=== PATIENT | male | born 1940 | race Caucasian/White ===

== ENCOUNTER 2016-11-11 17:36 | Inpatient (IN) | payer MEDICARE, OTHER ==
[~2016-11-11 17:36] MED LIST: ASPIRIN81 MG; AVODART0.5 MG; AZO BLADDER CO300 MG PO; BACTRIM DS TABL1 TAB; BACTRIM DS TABL1 TAB PO; CHOLESTEROL MA600 MG PO; COUMADIN10 M1 PO; COUMADIN2.5 MG; COUMADIN5 M1 PO; COUMADIN5 M2 PO; COUMADIN5 MG; COUMADIN5 MG PO; COUMADIN6 M1 PO; COUMADIN7.5 MG PO; COZAAR50 M1 PO; CPAP; FINASTERIDE5 M2 PO; FISH OIL 1,0001 CAP PO; FISH OIL 11000 MG/CA PO; FUROSEMIDE40 MG PO; GABAPENTIN300 M1 PO; K-DUR20 ME1 PO; LASIX20 M1 PO; LASIX40 MG PO; LIPITOR10 MG; LOSARTAN POTASS50 MG PO; LOVENOX100 MG/1 M SC; METFORMIN HCL500 M2 PO; MULTIVITAMIN1 TAB PO; MULTIVITAMINS1 EAC6 PO; NEURONTIN100 M1 PO; NIASPAN500 MG; NORCO 5/325 TAB1 TAB PO; NORVASC5 M2 PO; NORVASC5 MG; NORVASC5 MG PO; OMEGA 3 FISH1 CAP.EC PO; OMEGA 31 CAP; PLAVIX75 MG; POTASSIUM CHLO20 ME3 PO; PYRIDIUM200 MG PO; RED YEAST RICE600 MG; RED YEAST RICE600 MG PO; ROPINIROLE HCL1 M1 PO; ROPINIROLE HCL1 MG PO; ROPINIROLE HCL4 M2 PO; SANCTURA20 MG PO; SERTRALINE HCL100 M1 PO; SERTRALINE HCL100 M2 PO; SIMVASTATIN10 MG PO; TOPROL XL50 MG; TRIAMTERENE/HCT1 TAB; TROSPIUM CHLORI20 MG PO; UROXATRAL10 MG; VENLAFAXINE HC150 M3 PO; VITAMIN C1000 M1 PO; VITAMIN C1000 MG PO; XIFAXAN550 M1 PO; ZOCOR10 M1 PO; ZOCOR10 MG PO; [UNRECOGNIZED DRUG - OTHER] PO
[2016-11-11] MEDS ORDERED: FISH OIL 11000 MG/CA PO (18:11)
[2016-11-11 18:22] LABS: BASO % 0.4 % (0-2); EOS % 0.5 % (0-7); HCT-HEMATOCRIT 38.9 % (36.0-53.5); HGB-HEMOGLOBIN 13.4 gm/dl (13.5-17.0); IMMATURE GRANULOCYTES ABSOLUTE 0.01 tho/cmm (0-0.03); IMMATURE GRANULOCYTES PERCENT 0.2 % (0-0.3); LYMPH % 14.5 % (20-45); LYMPH ABSOLUTE COUNT 0.8 tho/cmm (0.8-4.5); MCH (MEAN CORPUSCULAR HGB) 34.3 pg (28.0-32.0); MCHC MEAN CORPUSCULAR HGB CONC 34.4 % (32.0-36.0); MCV (MEAN CELL VOLUME) 99.5 fl (82.0-96.0); MEAN PLATELET VOLUME 11.2 cmc (9.4-12.4); MONO % 10.3 % (0-12); MONOCYTE ABSOLUTE COUNT 0.6 tho/cmm (0.0-1.2); NEUTROPHIL ABSOLUTE COUNT 4.2 tho/cmm (1.6-8.0); NEUTROPHIL-AUTOMATED 4.2 tho/cmm (1.6-8.0); NEUTROPHILS % 74.1 % (40-80); PLATELET COUNT 207 tho/cmm (150-450); RED BLOOD COUNT 3.91 mil/cmm (4.40-5.70); RED CELL DISTRIBUTION WIDTH 14.4 % (12.4-16.4); WHITE BLOOD COUNT 5.7 tho/cmm (4.0-10.0)
[2016-11-11 18:52] LABS: URINE APPEARANCE CLEAR; URINE BILIRUBIN NEGATIVE (NEG); URINE BLOOD SMALL (NEG); URINE COLOR YELLOW; URINE GLUCOSE (UA) NEGATIVE (NEG); URINE KETONE NEGATIVE (NEG); URINE LEUKOCYTE ESTERASE NEGATIVE (NEG); URINE NITRITE NEGATIVE (NEG); URINE PROTEIN SMALL (NEG); URINE SPECIFIC GRAVITY 1.005 (1.003-1.030)
[2016-11-11 19:06] LABS: URINE EPITHELIAL CELLS 0 /[HPF] (0-10); URINE WBC 0 /[HPF] (0-5)
[2016-11-11 19:42] LABS: ALB/GLOB RATIO 0.7 (0.8-2.0); ALBUMIN 3.3 g/dl (3.5-5.0); ALKALINE PHOSPHATASE 218 U/L (33-138); ALT/SGPT 72 U/L (12-78); ANION GAP 12 mmol/L (0-20); AST/SGOT 92 U/L (10-40); BILIRUBIN,TOTAL 3.2 mg/dl (0.0-1.5); BLOOD UREA NITROGEN 21 mg/dl (6-24); CALCIUM 8.2 mg/dl (8.5-10.5); CARBON DIOXIDE-VENOUS 28 mmol/L (22-32); CHLORIDE 101 mmol/l (96-110); GLUCOSE 106 mg/dL (70-110); POTASSIUM 4.1 mmol/L (3.7-5.1); SODIUM 137 mmol/L (135-145); eGFR VALUE FOR BLACK 75 mL/Min
[2016-11-11 22:56] LABS: INR 1.6 INR (0.9-1.1); PROTHROMBIN TIME 18.7 SECONDS (9.0-13.6)
[2016-11-11 23:10] LABS: BILIRUBIN,DIRECT 0.7 mg/dl (0.0-0.3); BILIRUBIN,INDIRECT 2.4 mg/dL (0.0-1.0); BILIRUBIN,TOTAL 3.1 mg/dl (0.0-1.5)
[2016-11-11 23:13] LABS: TSH-THYROID STIMULATING HORM. 2.23 uIU/ml (0.40-3.80)
[2016-11-12 01:11] LABS: INR 1.5 INR (0.9-1.1); PROTHROMBIN TIME 18.2 SECONDS (9.0-13.6)
[2016-11-12 03:45] LABS: BASO % 0.3 % (0-2); HCT-HEMATOCRIT 34.7 % (36.0-53.5); HGB-HEMOGLOBIN 11.6 gm/dl (13.5-17.0); IMMATURE GRANULOCYTES ABSOLUTE 0.02 tho/cmm (0-0.03); IMMATURE GRANULOCYTES PERCENT 0.3 % (0-0.3); LYMPH ABSOLUTE COUNT 1.1 tho/cmm (0.8-4.5); MCH (MEAN CORPUSCULAR HGB) 33.4 pg (28.0-32.0); MCHC MEAN CORPUSCULAR HGB CONC 33.4 % (32.0-36.0); MEAN PLATELET VOLUME 10.8 cmc (9.4-12.4); MONO % 9.6 % (0-12); MONOCYTE ABSOLUTE COUNT 0.7 tho/cmm (0.0-1.2); NEUTROPHIL ABSOLUTE COUNT 5.8 tho/cmm (1.6-8.0); NEUTROPHIL-AUTOMATED 5.8 tho/cmm (1.6-8.0); NEUTROPHILS % 75.8 % (40-80); PLATELET COUNT 143 tho/cmm (150-450); RED BLOOD COUNT 3.47 mil/cmm (4.40-5.70); RED CELL DISTRIBUTION WIDTH 14.4 % (12.4-16.4); WHITE BLOOD COUNT 7.6 tho/cmm (4.0-10.0)
[2016-11-12 04:10] LABS: ALB/GLOB RATIO 0.7 (0.8-2.0); ALBUMIN 2.9 g/dl (3.5-5.0); ALKALINE PHOSPHATASE 183 U/L (33-138); ALT/SGPT 64 U/L (12-78); ANION GAP 15 mmol/L (0-20); AST/SGOT 91 U/L (10-40); BILIRUBIN,DIRECT 0.9 mg/dl (0.0-0.3); BILIRUBIN,INDIRECT 2.6 mg/dL (0.0-1.0); BILIRUBIN,TOTAL 3.5 mg/dl (0.0-1.5); BLOOD UREA NITROGEN 24 mg/dl (6-24); CALCIUM 7.7 mg/dl (8.5-10.5); CARBON DIOXIDE-VENOUS 22 mmol/L (22-32); CHLORIDE 104 mmol/l (96-110); CREATININE 1.08 mg/dl (0.60-1.30); GLUCOSE 104 mg/dL (70-110); MAGNESIUM 1.7 mg/dl (1.3-2.6); POTASSIUM 3.8 mmol/L (3.7-5.1); SODIUM 137 mmol/L (135-145); eGFR VALUE FOR BLACK 77 mL/Min
[2016-11-13 03:51] LABS: INR 1.3 INR (0.9-1.1); PROTHROMBIN TIME 15.5 SECONDS (9.0-13.6)
[2016-11-13 04:05] LABS: ANION GAP 13 mmol/L (0-20); BLOOD UREA NITROGEN 22 mg/dl (6-24); CALCIUM 7.9 mg/dl (8.5-10.5); CARBON DIOXIDE-VENOUS 24 mmol/L (22-32); CHLORIDE 105 mmol/l (96-110); GLUCOSE 147 mg/dL (70-110); POTASSIUM 3.4 mmol/L (3.7-5.1); SODIUM 139 mmol/L (135-145); eGFR VALUE FOR BLACK 84 mL/Min
[2016-11-13 04:06] LABS: BASO % 0.4 % (0-2); EOSINOPHIL ABSOLUTE COUNT 0.1 tho/cmm (0.0-0.7); HCT-HEMATOCRIT 32.6 % (36.0-53.5); HGB-HEMOGLOBIN 10.7 gm/dl (13.5-17.0); IMMATURE GRANULOCYTES ABSOLUTE 0.02 tho/cmm (0-0.03); IMMATURE GRANULOCYTES PERCENT 0.3 % (0-0.3); LYMPH % 9.6 % (20-45); LYMPH ABSOLUTE COUNT 0.7 tho/cmm (0.8-4.5); MCH (MEAN CORPUSCULAR HGB) 32.7 pg (28.0-32.0); MCHC MEAN CORPUSCULAR HGB CONC 32.8 % (32.0-36.0); MCV (MEAN CELL VOLUME) 99.7 fl (82.0-96.0); MEAN PLATELET VOLUME 10.8 cmc (9.4-12.4); MONO % 9.8 % (0-12); MONOCYTE ABSOLUTE COUNT 0.7 tho/cmm (0.0-1.2); NEUTROPHIL ABSOLUTE COUNT 5.6 tho/cmm (1.6-8.0); NEUTROPHIL-AUTOMATED 5.6 tho/cmm (1.6-8.0); NEUTROPHILS % 78.9 % (40-80); PLATELET COUNT 137 tho/cmm (150-450); RED BLOOD COUNT 3.27 mil/cmm (4.40-5.70); RED CELL DISTRIBUTION WIDTH 14.6 % (12.4-16.4); WHITE BLOOD COUNT 7.1 tho/cmm (4.0-10.0)
[2016-11-14 06:05] LABS: INR 1.2 INR (0.9-1.1); PROTHROMBIN TIME 14.6 SECONDS (9.0-13.6)
[2016-11-14 06:12] LABS: BASO % 0.2 % (0-2); EOS % 2.6 % (0-7); EOSINOPHIL ABSOLUTE COUNT 0.2 tho/cmm (0.0-0.7); HCT-HEMATOCRIT 31.2 % (36.0-53.5); HGB-HEMOGLOBIN 10.5 gm/dl (13.5-17.0); IMMATURE GRANULOCYTES ABSOLUTE 0.02 tho/cmm (0-0.03); IMMATURE GRANULOCYTES PERCENT 0.3 % (0-0.3); LYMPH % 12.8 % (20-45); LYMPH ABSOLUTE COUNT 0.7 tho/cmm (0.8-4.5); MCH (MEAN CORPUSCULAR HGB) 33.7 pg (28.0-32.0); MCHC MEAN CORPUSCULAR HGB CONC 33.7 % (32.0-36.0); MONO % 11.6 % (0-12); MONOCYTE ABSOLUTE COUNT 0.7 tho/cmm (0.0-1.2); NEUTROPHIL ABSOLUTE COUNT 4.2 tho/cmm (1.6-8.0); NEUTROPHIL-AUTOMATED 4.2 tho/cmm (1.6-8.0); NEUTROPHILS % 72.5 % (40-80); PLATELET COUNT 142 tho/cmm (150-450); RED BLOOD COUNT 3.12 mil/cmm (4.40-5.70); RED CELL DISTRIBUTION WIDTH 14.7 % (12.4-16.4); WHITE BLOOD COUNT 5.8 tho/cmm (4.0-10.0)
[2016-11-14 06:55] LABS: ANION GAP 15 mmol/L (0-20); BLOOD UREA NITROGEN 16 mg/dl (6-24); CALCIUM 7.8 mg/dl (8.5-10.5); CARBON DIOXIDE-VENOUS 22 mmol/L (22-32); CHLORIDE 105 mmol/l (96-110); CREATININE 0.76 mg/dl (0.60-1.30); GLUCOSE 120 mg/dL (70-110); POTASSIUM 3.7 mmol/L (3.7-5.1); SODIUM 138 mmol/L (135-145); eGFR VALUE FOR BLACK >90 mL/Min
[2016-11-14] MEDS ORDERED: CARTIA XT240 M1 PO (17:05)
[2016-11-14] MEDS ORDERED: AUGMENTIN 875-1 EAC2 PO (17:10)
[2017-04-24] MEDS ORDERED: GLUCOPHAGE500 M3 PO (03:59)
[2017-04-24] MEDS ORDERED: COUMADIN5 M2 PO ×2 (03:59→15:05)
[2017-04-24] MEDS ORDERED: ALDACTONE100 M1 PO (03:59)
[2017-04-24] MEDS ORDERED: NEURONTIN100 M1 PO (03:59)
[2017-04-24] MEDS ORDERED: VENLAFAXINE HC150 M2 PO (04:00)
[2017-04-24] MEDS ORDERED: PROSCAR5 M1 PO (04:00)
[2017-04-24] MEDS ORDERED: XIFAXAN550 M1 PO (04:00)
[2017-04-24] MEDS ORDERED: GENERLAC10 GM/15 M PO (04:01)
[2017-04-24] MEDS ORDERED: CARTIA XT240 M1 PO (04:01)
[2017-04-24] MEDS ORDERED: CENTRUM SILVER1 EAC3 PO (04:01)
[2017-04-24] MEDS ORDERED: REQUIP1 M1 PO (04:02)
[2017-04-24] MEDS ORDERED: VITAMIN C1000 M1 PO (04:03)
[2017-04-24] MEDS ORDERED: ROPINIROLE HCL4 M2 PO (04:03)
[2017-04-24] MEDS ORDERED: ZOCOR10 M1 PO (15:05)
[2017-05-07] MEDS ORDERED: COUMADIN5 M2 PO ×2 (11:32→11:44)
[2017-05-08] MEDS ORDERED: LASIX40 M1 PO (10:57)
== END 2016-11-14 17:15 | DRG 871 ==
LOC: EDMED 17:36 → EMR2 20:57 → PCUB 23:30
PROVIDERS: Emergency Medicine; Family Medicine; Internal Medicine; ADMIT Hospitalist
PROC: 02HV33Z Insertion of Infusion Device into Superior Vena Cava, Percutaneous Approach (ICD-10-PCS; principal; 2016-11-12)
DX: A41.9 Sepsis, unspecified organism (principal); J18.9 Pneumonia, unspecified organism; J96.01 Acute respiratory failure with hypoxia; G93.41 Metabolic encephalopathy; C22.8 Malignant neoplasm of liver, primary, unspecified as to type; I95.9 Hypotension, unspecified; R65.20 Severe sepsis without septic shock; I48.91 Unspecified atrial fibrillation; E11.9 Type 2 diabetes mellitus without complications; G25.81 Restless legs syndrome; G47.33 Obstructive sleep apnea (adult) (pediatric); E78.5 Hyperlipidemia, unspecified; I10 Essential (primary) hypertension; Z86.73 Personal history of transient ischemic attack (TIA), and cerebral infarction without residual deficits; Z87.891 Personal history of nicotine dependence
CPT/HCPCS: C1751; J0282; J0456; J0696; J1650; J1815; J2543; J3370; J7030; J7050; Q9967

== ENCOUNTER 2016-12-11 08:31 | Day surgery (SDC) | payer MEDICARE, OTHER ==
[~2016-12-11 08:31] MED LIST changes: +AUGMENTIN 875-1 EAC2 PO; +CARTIA XT240 M1 PO
[2016-12-11] MEDS ORDERED: COUMADIN5 M2 PO ×2 (09:32→09:33)
[2016-12-11 09:43] LABS: BASO % 0.9 % (0-2); EOS % 12.6 % (0-7); EOSINOPHIL ABSOLUTE COUNT 0.5 tho/cmm (0.0-0.7); HCT-HEMATOCRIT 34.2 % (36.0-53.5); HGB-HEMOGLOBIN 11.4 gm/dl (13.5-17.0); IMMATURE GRANULOCYTES ABSOLUTE 0.01 tho/cmm (0-0.03); IMMATURE GRANULOCYTES PERCENT 0.2 % (0-0.3); LYMPH % 21.2 % (20-45); LYMPH ABSOLUTE COUNT 0.9 tho/cmm (0.8-4.5); MCH (MEAN CORPUSCULAR HGB) 33.9 pg (28.0-32.0); MCHC MEAN CORPUSCULAR HGB CONC 33.3 % (32.0-36.0); MCV (MEAN CELL VOLUME) 101.8 fl (82.0-96.0); MEAN PLATELET VOLUME 10.2 cmc (9.4-12.4); MONO % 13.3 % (0-12); MONOCYTE ABSOLUTE COUNT 0.6 tho/cmm (0.0-1.2); NEUTROPHIL ABSOLUTE COUNT 2.2 tho/cmm (1.6-8.0); NEUTROPHIL-AUTOMATED 2.2 tho/cmm (1.6-8.0); NEUTROPHILS % 51.8 % (40-80); PLATELET COUNT 160 tho/cmm (150-450); RED BLOOD COUNT 3.36 mil/cmm (4.40-5.70); RED CELL DISTRIBUTION WIDTH 15.6 % (12.4-16.4); WHITE BLOOD COUNT 4.3 tho/cmm (4.0-10.0)
[2016-12-11 09:47] LABS: INR 1.1 INR (0.9-1.1); PROTHROMBIN TIME 12.3 SECONDS (9.0-13.6)
[2016-12-11 10:03] LABS: ALB/GLOB RATIO 0.7 (0.8-2.0); ALBUMIN 3.2 g/dl (3.5-5.0); ALKALINE PHOSPHATASE 295 U/L (33-138); ALT/SGPT 111 U/L (12-78); ANION GAP 14 mmol/L (0-20); AST/SGOT 155 U/L (10-40); BILIRUBIN,TOTAL 1.4 mg/dl (0.0-1.5); BLOOD UREA NITROGEN 21 mg/dl (6-24); CALCIUM 8.5 mg/dl (8.5-10.5); CARBON DIOXIDE-VENOUS 27 mmol/L (22-32); CHLORIDE 104 mmol/l (96-110); CREATININE 0.97 mg/dl (0.60-1.30); GLUCOSE 130 mg/dL (70-110); POTASSIUM 3.9 mmol/L (3.7-5.1); SODIUM 141 mmol/L (135-145); eGFR VALUE FOR BLACK 88 mL/Min
[2017-04-24] MEDS ORDERED: ALDACTONE100 M1 PO (03:59)
[2017-04-24] MEDS ORDERED: NEURONTIN100 M1 PO (03:59)
[2017-04-24] MEDS ORDERED: COUMADIN5 M2 PO ×2 (03:59→15:05)
[2017-04-24] MEDS ORDERED: GLUCOPHAGE500 M3 PO (03:59)
[2017-04-24] MEDS ORDERED: VENLAFAXINE HC150 M2 PO (04:00)
[2017-04-24] MEDS ORDERED: PROSCAR5 M1 PO (04:00)
[2017-04-24] MEDS ORDERED: XIFAXAN550 M1 PO (04:00)
[2017-04-24] MEDS ORDERED: GENERLAC10 GM/15 M PO (04:01)
[2017-04-24] MEDS ORDERED: CARTIA XT240 M1 PO (04:01)
[2017-04-24] MEDS ORDERED: CENTRUM SILVER1 EAC3 PO (04:01)
[2017-04-24] MEDS ORDERED: REQUIP1 M1 PO (04:02)
[2017-04-24] MEDS ORDERED: VITAMIN C1000 M1 PO (04:03)
[2017-04-24] MEDS ORDERED: ROPINIROLE HCL4 M2 PO (04:03)
[2017-04-24] MEDS ORDERED: ZOCOR10 M1 PO (15:05)
[2017-05-07] MEDS ORDERED: COUMADIN5 M2 PO ×2 (11:32→11:44)
[2017-05-08] MEDS ORDERED: LASIX40 M1 PO (10:57)
== END 2016-12-11 17:50 ==
LOC: RADSP 08:31 → SHSB 08:37 → SHSC 08:47 → PACU 13:49 → SHSB 14:50
PROVIDERS: Radiology Diagnostic Radiology
PROC: 04L33DZ Occlusion of Hepatic Artery with Intraluminal Device, Percutaneous Approach (ICD-10-PCS; principal; 2016-12-11)
DX: C22.0 Liver cell carcinoma (principal); I10 Essential (primary) hypertension; Z86.73 Personal history of transient ischemic attack (TIA), and cerebral infarction without residual deficits; F41.9 Anxiety disorder, unspecified; E11.9 Type 2 diabetes mellitus without complications; G47.30 Sleep apnea, unspecified; Z91.040 Latex allergy status; Z79.899 Other long term (current) drug therapy; I48.2 Chronic atrial fibrillation; E78.00 Pure hypercholesterolemia, unspecified; M19.90 Unspecified osteoarthritis, unspecified site; Z88.8 Allergy status to other drugs, medicaments and biological substances; Z90.49 Acquired absence of other specified parts of digestive tract
CPT/HCPCS: A9540; C1769; C1887; J1100; J1200; J1956; J2405; J7030; Q9967

== ENCOUNTER 2016-12-19 08:52 | Day surgery (SDC) | payer MEDICARE, OTHER ==
[2016-12-19 09:51] LABS: BASO % 0.6 % (0-2); EOS % 10.2 % (0-7); EOSINOPHIL ABSOLUTE COUNT 0.5 tho/cmm (0.0-0.7); HCT-HEMATOCRIT 36.4 % (36.0-53.5); HGB-HEMOGLOBIN 12.3 gm/dl (13.5-17.0); IMMATURE GRANULOCYTES ABSOLUTE 0.02 tho/cmm (0-0.03); IMMATURE GRANULOCYTES PERCENT 0.4 % (0-0.3); LYMPH % 21.4 % (20-45); MCH (MEAN CORPUSCULAR HGB) 34.3 pg (28.0-32.0); MCHC MEAN CORPUSCULAR HGB CONC 33.8 % (32.0-36.0); MCV (MEAN CELL VOLUME) 101.4 fl (82.0-96.0); MEAN PLATELET VOLUME 10.1 cmc (9.4-12.4); MONO % 9.9 % (0-12); MONOCYTE ABSOLUTE COUNT 0.5 tho/cmm (0.0-1.2); NEUTROPHIL ABSOLUTE COUNT 2.7 tho/cmm (1.6-8.0); NEUTROPHIL-AUTOMATED 2.7 tho/cmm (1.6-8.0); NEUTROPHILS % 57.5 % (40-80); PLATELET COUNT 169 tho/cmm (150-450); RED BLOOD COUNT 3.59 mil/cmm (4.40-5.70); RED CELL DISTRIBUTION WIDTH 15.3 % (12.4-16.4); WHITE BLOOD COUNT 4.6 tho/cmm (4.0-10.0)
[2016-12-19 09:56] LABS: INR 1.1 INR (0.9-1.1); PROTHROMBIN TIME 12.3 SECONDS (9.0-13.6)
[2016-12-19 10:03] LABS: ANION GAP 11 mmol/L (0-20); BLOOD UREA NITROGEN 20 mg/dl (6-24); CALCIUM 8.7 mg/dl (8.5-10.5); CARBON DIOXIDE-VENOUS 28 mmol/L (22-32); CHLORIDE 107 mmol/l (96-110); CREATININE 1.04 mg/dl (0.60-1.30); GLUCOSE 134 mg/dL (70-110); POTASSIUM 3.9 mmol/L (3.7-5.1); SODIUM 142 mmol/L (135-145); eGFR VALUE FOR BLACK 80 mL/Min
[2016-12-20 05:37] LABS: EOS % 0.1 % (0-7); HCT-HEMATOCRIT 32.8 % (36.0-53.5); HGB-HEMOGLOBIN 10.9 gm/dl (13.5-17.0); IMMATURE GRANULOCYTES ABSOLUTE 0.02 tho/cmm (0-0.03); IMMATURE GRANULOCYTES PERCENT 0.3 % (0-0.3); LYMPH % 9.1 % (20-45); LYMPH ABSOLUTE COUNT 0.6 tho/cmm (0.8-4.5); MCH (MEAN CORPUSCULAR HGB) 33.5 pg (28.0-32.0); MCHC MEAN CORPUSCULAR HGB CONC 33.2 % (32.0-36.0); MCV (MEAN CELL VOLUME) 100.9 fl (82.0-96.0); MEAN PLATELET VOLUME 10.4 cmc (9.4-12.4); MONO % 8.1 % (0-12); MONOCYTE ABSOLUTE COUNT 0.6 tho/cmm (0.0-1.2); NEUTROPHIL ABSOLUTE COUNT 5.6 tho/cmm (1.6-8.0); NEUTROPHIL-AUTOMATED 5.6 tho/cmm (1.6-8.0); NEUTROPHILS % 82.4 % (40-80); PLATELET COUNT 152 tho/cmm (150-450); RED BLOOD COUNT 3.25 mil/cmm (4.40-5.70); RED CELL DISTRIBUTION WIDTH 15.2 % (12.4-16.4); WHITE BLOOD COUNT 6.8 tho/cmm (4.0-10.0)
[2016-12-20 05:57] LABS: ALB/GLOB RATIO 0.6 (0.8-2.0); ALBUMIN 2.7 g/dl (3.5-5.0); ALKALINE PHOSPHATASE 255 U/L (33-138); ALT/SGPT 89 U/L (12-78); ANION GAP 12 mmol/L (0-20); AST/SGOT 101 U/L (10-40); BILIRUBIN,TOTAL 1.3 mg/dl (0.0-1.5); BLOOD UREA NITROGEN 17 mg/dl (6-24); CALCIUM 8.5 mg/dl (8.5-10.5); CARBON DIOXIDE-VENOUS 25 mmol/L (22-32); CHLORIDE 106 mmol/l (96-110); CREATININE 0.96 mg/dl (0.60-1.30); GLUCOSE 162 mg/dL (70-110); POTASSIUM 4.4 mmol/L (3.7-5.1); SODIUM 139 mmol/L (135-145); eGFR VALUE FOR BLACK 89 mL/Min
[2016-12-20] MEDS ORDERED: MEDROL4 M1 (11:41)
[2016-12-20] MEDS ORDERED: LEVAQUIN500 M1 PO (11:42)
[2016-12-20] MEDS ORDERED: ZOFRAN4 M2 PO (11:43)
[2016-12-20] MEDS ORDERED: PRILOSEC OTC20 M1 PO (11:43)
[2016-12-20] MEDS ORDERED: PERCOCET 5-3251 EACH PO (11:44)
[2017-04-24] MEDS ORDERED: NEURONTIN100 M1 PO (03:59)
[2017-04-24] MEDS ORDERED: COUMADIN5 M2 PO ×2 (03:59→15:05)
[2017-04-24] MEDS ORDERED: GLUCOPHAGE500 M3 PO (03:59)
[2017-04-24] MEDS ORDERED: ALDACTONE100 M1 PO (03:59)
[2017-04-24] MEDS ORDERED: XIFAXAN550 M1 PO (04:00)
[2017-04-24] MEDS ORDERED: PROSCAR5 M1 PO (04:00)
[2017-04-24] MEDS ORDERED: VENLAFAXINE HC150 M2 PO (04:00)
[2017-04-24] MEDS ORDERED: CENTRUM SILVER1 EAC3 PO (04:01)
[2017-04-24] MEDS ORDERED: GENERLAC10 GM/15 M PO (04:01)
[2017-04-24] MEDS ORDERED: CARTIA XT240 M1 PO (04:01)
[2017-04-24] MEDS ORDERED: REQUIP1 M1 PO (04:02)
[2017-04-24] MEDS ORDERED: ROPINIROLE HCL4 M2 PO (04:03)
[2017-04-24] MEDS ORDERED: VITAMIN C1000 M1 PO (04:03)
[2017-04-24] MEDS ORDERED: ZOCOR10 M1 PO (15:05)
[2017-05-07] MEDS ORDERED: COUMADIN5 M2 PO ×2 (11:32→11:44)
[2017-05-08] MEDS ORDERED: LASIX40 M1 PO (10:57)
== END 2016-12-20 12:18 ==
LOC: RADSP 08:52 → SHSB 08:53 → CAR1 18:22
PROVIDERS: Family Medicine; Radiology Diagnostic Radiology
PROC: 04L33ZZ Occlusion of Hepatic Artery, Percutaneous Approach (ICD-10-PCS; principal; 2016-12-19)
DX: C22.8 Malignant neoplasm of liver, primary, unspecified as to type (principal); I25.10 Atherosclerotic heart disease of native coronary artery without angina pectoris; I48.91 Unspecified atrial fibrillation; I10 Essential (primary) hypertension; M19.90 Unspecified osteoarthritis, unspecified site; G51.0 Bell's palsy; G25.81 Restless legs syndrome; E11.9 Type 2 diabetes mellitus without complications; F41.9 Anxiety disorder, unspecified; G47.33 Obstructive sleep apnea (adult) (pediatric); R60.0 Localized edema; K92.1 Melena; K74.60 Unspecified cirrhosis of liver; K76.6 Portal hypertension; Z79.01 Long term (current) use of anticoagulants; Z79.84 Long term (current) use of oral hypoglycemic drugs; Z79.899 Other long term (current) drug therapy; Z91.040 Latex allergy status; Z91.048 Other nonmedicinal substance allergy status; Z86.73 Personal history of transient ischemic attack (TIA), and cerebral infarction without residual deficits; Z87.01 Personal history of pneumonia (recurrent); Z90.49 Acquired absence of other specified parts of digestive tract; Z98.890 Other specified postprocedural states
CPT/HCPCS: C1887; J1100; J1200; J1956; J2405; J7030; Q9967

== ENCOUNTER 2017-01-15 22:59 | Emergency (ER) | payer MEDICARE, OTHER ==
[~2017-01-15 22:59] MED LIST changes: +LEVAQUIN500 M1 PO; +MEDROL4 M1; +PERCOCET 5-3251 EACH PO; +PRILOSEC OTC20 M1 PO; +ZOFRAN4 M2 PO
[2017-01-15] MEDS ORDERED: GENERLAC10 GM/15 M PO (23:36)
[2017-01-16 00:05] LABS: INR 2.8 INR (0.9-1.1); PROTHROMBIN TIME 33.2 SECONDS (9.0-13.6)
[2017-04-24] MEDS ORDERED: NEURONTIN100 M1 PO (03:59)
[2017-04-24] MEDS ORDERED: ALDACTONE100 M1 PO (03:59)
[2017-04-24] MEDS ORDERED: COUMADIN5 M2 PO ×2 (03:59→15:05)
[2017-04-24] MEDS ORDERED: GLUCOPHAGE500 M3 PO (03:59)
[2017-04-24] MEDS ORDERED: PROSCAR5 M1 PO (04:00)
[2017-04-24] MEDS ORDERED: VENLAFAXINE HC150 M2 PO (04:00)
[2017-04-24] MEDS ORDERED: XIFAXAN550 M1 PO (04:00)
[2017-04-24] MEDS ORDERED: GENERLAC10 GM/15 M PO (04:01)
[2017-04-24] MEDS ORDERED: CARTIA XT240 M1 PO (04:01)
[2017-04-24] MEDS ORDERED: CENTRUM SILVER1 EAC3 PO (04:01)
[2017-04-24] MEDS ORDERED: REQUIP1 M1 PO (04:02)
[2017-04-24] MEDS ORDERED: ROPINIROLE HCL4 M2 PO (04:03)
[2017-04-24] MEDS ORDERED: VITAMIN C1000 M1 PO (04:03)
[2017-04-24] MEDS ORDERED: ZOCOR10 M1 PO (15:05)
[2017-05-07] MEDS ORDERED: COUMADIN5 M2 PO ×2 (11:32→11:44)
[2017-05-08] MEDS ORDERED: LASIX40 M1 PO (10:57)
== END 2017-01-16 00:38 ==
LOC: EDMED 22:59
PROVIDERS: Emergency Medicine
DX: S91.102A Unspecified open wound of left great toe without damage to nail, initial encounter (principal); R58 Hemorrhage, not elsewhere classified; I48.91 Unspecified atrial fibrillation; I25.2 Old myocardial infarction; I15.9 Secondary hypertension, unspecified; E11.9 Type 2 diabetes mellitus without complications; Z86.73 Personal history of transient ischemic attack (TIA), and cerebral infarction without residual deficits; K21.9 Gastro-esophageal reflux disease without esophagitis; Z85.05 Personal history of malignant neoplasm of liver; Z95.2 Presence of prosthetic heart valve; Z90.49 Acquired absence of other specified parts of digestive tract; Z79.01 Long term (current) use of anticoagulants; Z79.899 Other long term (current) drug therapy; X58.XXXA Exposure to other specified factors, initial encounter

== ENCOUNTER 2017-02-05 14:04 | Inpatient (IN) | payer MEDICARE, OTHER ==
[~2017-02-05 14:04] MED LIST changes: +GENERLAC10 GM/15 M PO
[2017-02-05] MEDS ORDERED: LASIX20 M1 PO (14:29)
[2017-02-05] MEDS ORDERED: ALDACTONE50 M1 PO (14:30)
[2017-02-05] MEDS ORDERED: SIMVASTATIN10 M1 PO (14:34)
[2017-02-05 14:41] LABS: BASO % 0.7 % (0-2); EOS % 5.1 % (0-7); EOSINOPHIL ABSOLUTE COUNT 0.3 tho/cmm (0.0-0.7); HCT-HEMATOCRIT 39.1 % (36.0-53.5); HGB-HEMOGLOBIN 13.4 gm/dl (13.5-17.0); IMMATURE GRANULOCYTES ABSOLUTE 0.03 tho/cmm (0-0.03); IMMATURE GRANULOCYTES PERCENT 0.5 % (0-0.3); LYMPH ABSOLUTE COUNT 1.1 tho/cmm (0.8-4.5); MCH (MEAN CORPUSCULAR HGB) 34.3 pg (28.0-32.0); MCHC MEAN CORPUSCULAR HGB CONC 34.3 % (32.0-36.0); MEAN PLATELET VOLUME 10.6 cmc (9.4-12.4); MONO % 12.6 % (0-12); MONOCYTE ABSOLUTE COUNT 0.8 tho/cmm (0.0-1.2); NEUTROPHIL ABSOLUTE COUNT 3.9 tho/cmm (1.6-8.0); NEUTROPHIL-AUTOMATED 3.9 tho/cmm (1.6-8.0); NEUTROPHILS % 63.1 % (40-80); PLATELET COUNT 207 tho/cmm (150-450); RED BLOOD COUNT 3.91 mil/cmm (4.40-5.70); RED CELL DISTRIBUTION WIDTH 14.8 % (12.4-16.4); WHITE BLOOD COUNT 6.1 tho/cmm (4.0-10.0)
[2017-02-05 14:50] LABS: INR 1.9 INR (0.9-1.1); PROTHROMBIN TIME 22.8 SECONDS (9.0-13.6)
[2017-02-05 15:02] LABS: ALB/GLOB RATIO 0.5 (0.8-2.0); ALBUMIN 3.2 g/dl (3.5-5.0); ALKALINE PHOSPHATASE 289 U/L (33-138); ALT/SGPT 87 U/L (12-78); ANION GAP 24 mmol/L (0-20); AST/SGOT 134 U/L (10-40); BILIRUBIN,TOTAL 0.9 mg/dl (0.0-1.5); BLOOD UREA NITROGEN 65 mg/dl (6-24); CALCIUM 9.3 mg/dl (8.5-10.5); CARBON DIOXIDE-VENOUS 17 mmol/L (22-32); CHLORIDE 97 mmol/l (96-110); CREATININE 3.54 mg/dl (0.60-1.30); GLUCOSE 126 mg/dL (70-110); POTASSIUM 5.8 mmol/L (3.7-5.1); SODIUM 132 mmol/L (135-145); eGFR VALUE FOR BLACK 18 mL/Min
[2017-02-05 15:03] LABS: CREATINE PHOSPHOKINASE (CPK) 109 U/L (35-232)
[2017-02-05] MEDS ORDERED: ALDACTONE100 M1 PO (15:19)
[2017-02-05 15:21] LABS: PROCALCITONIN 0.25 ng/ml (0.05-0.09)
[2017-02-05 17:07] LABS: URINE BILIRUBIN NEGATIVE (NEG); URINE BLOOD NEGATIVE (NEG); URINE GLUCOSE (UA) NEGATIVE (NEG); URINE KETONE NEGATIVE (NEG); URINE LEUKOCYTE ESTERASE POSITIVE (NEG); URINE NITRITE NEGATIVE (NEG); URINE PROTEIN SMALL (NEG); URINE SPECIFIC GRAVITY 1.015 (1.003-1.030)
[2017-02-05 17:15] LABS: URINE APPEARANCE HAZY; URINE COLOR YELLOW
[2017-02-05 17:18] LABS: URINE BACTERIA 1+; URINE EPITHELIAL CELLS 0-3 /[HPF] (0-10); URINE RBC 0 /[HPF] (0-5)
[2017-02-05 20:58] LABS: URINE CREATININE-RANDOM 137 mg/dl (30-125)
[2017-02-05 21:03] LABS: URINE UREA NITROGEN-RANDOM 490 mg/dl (350-1000)
[2017-02-05 21:36] LABS: ABG CO2 ARTERIAL 22 mmol/L (21-27); ARTERIAL BLD GAS O2 SATURATION 94 % (95-98); ARTERIAL BLOOD GAS PCO2 35 mmHg (32-45); ARTERIAL PO2 76 mmHg (70-100); BICARBONATE 21 mmol/L (21-28); BLOOD GAS BASE EXCESS -3 mM/L (-/+3); PH 7.39 Units (7.35-7.45)
[2017-02-06 05:01] LABS: BASO % 0.5 % (0-2); EOS % 6.3 % (0-7); EOSINOPHIL ABSOLUTE COUNT 0.4 tho/cmm (0.0-0.7); HCT-HEMATOCRIT 33.9 % (36.0-53.5); HGB-HEMOGLOBIN 11.6 gm/dl (13.5-17.0); IMMATURE GRANULOCYTES ABSOLUTE 0.02 tho/cmm (0-0.03); IMMATURE GRANULOCYTES PERCENT 0.3 % (0-0.3); LYMPH % 11.7 % (20-45); LYMPH ABSOLUTE COUNT 0.7 tho/cmm (0.8-4.5); MCH (MEAN CORPUSCULAR HGB) 33.9 pg (28.0-32.0); MCHC MEAN CORPUSCULAR HGB CONC 34.2 % (32.0-36.0); MCV (MEAN CELL VOLUME) 99.1 fl (82.0-96.0); MEAN PLATELET VOLUME 10.2 cmc (9.4-12.4); MONO % 13.4 % (0-12); MONOCYTE ABSOLUTE COUNT 0.8 tho/cmm (0.0-1.2); NEUTROPHILS % 67.8 % (40-80); PLATELET COUNT 153 tho/cmm (150-450); RED BLOOD COUNT 3.42 mil/cmm (4.40-5.70); RED CELL DISTRIBUTION WIDTH 14.9 % (12.4-16.4); WHITE BLOOD COUNT 5.8 tho/cmm (4.0-10.0)
[2017-02-06 05:03] LABS: INR 2.1 INR (0.9-1.1); PROTHROMBIN TIME 25.1 SECONDS (9.0-13.6)
[2017-02-06 05:13] LABS: ALB/GLOB RATIO 0.6 (0.8-2.0); ALBUMIN 2.7 g/dl (3.5-5.0); ALKALINE PHOSPHATASE 244 U/L (33-138); ALT/SGPT 77 U/L (12-78); ANION GAP 15 mmol/L (0-20); AST/SGOT 128 U/L (10-40); BILIRUBIN,TOTAL 1.1 mg/dl (0.0-1.5); BLOOD UREA NITROGEN 57 mg/dl (6-24); C-REACTIVE PROTEIN 0.4 mg/dl (0-0.9); CALCIUM 8.5 mg/dl (8.5-10.5); CARBON DIOXIDE-VENOUS 22 mmol/L (22-32); CHLORIDE 104 mmol/l (96-110); CREATININE 2.78 mg/dl (0.60-1.30); GLUCOSE 123 mg/dL (70-110); MAGNESIUM 2.8 mg/dl (1.8-2.6); SODIUM 136 mmol/L (135-145); eGFR VALUE FOR BLACK 25 mL/Min
[2017-02-06 06:16] LABS: ESR-ERYTHROCYTE SED RATE 40 mm/hr (0-20)
[2017-02-07 05:11] LABS: INR 2.4 INR (0.9-1.1); PROTHROMBIN TIME 28.2 SECONDS (9.0-13.6)
[2017-02-07 05:20] LABS: ANION GAP 13 mmol/L (0-20); BLOOD UREA NITROGEN 36 mg/dl (6-24); CALCIUM 8.6 mg/dl (8.5-10.5); CARBON DIOXIDE-VENOUS 24 mmol/L (22-32); CHLORIDE 104 mmol/l (96-110); GLUCOSE 121 mg/dL (70-110); MAGNESIUM 2.2 mg/dl (1.8-2.6); POTASSIUM 4.7 mmol/L (3.7-5.1); SODIUM 136 mmol/L (135-145); eGFR VALUE FOR BLACK 42 mL/Min
[2017-02-07 05:24] LABS: CREATININE 1.78 mg/dl (0.60-1.30)
[2017-02-07 06:37] LABS: PROCALCITONIN 0.18 ng/ml (0.05-0.09)
[2017-04-24] MEDS ORDERED: GLUCOPHAGE500 M3 PO (03:59)
[2017-04-24] MEDS ORDERED: ALDACTONE100 M1 PO (03:59)
[2017-04-24] MEDS ORDERED: NEURONTIN100 M1 PO (03:59)
[2017-04-24] MEDS ORDERED: COUMADIN5 M2 PO ×2 (03:59→15:05)
[2017-04-24] MEDS ORDERED: XIFAXAN550 M1 PO (04:00)
[2017-04-24] MEDS ORDERED: PROSCAR5 M1 PO (04:00)
[2017-04-24] MEDS ORDERED: VENLAFAXINE HC150 M2 PO (04:00)
[2017-04-24] MEDS ORDERED: CARTIA XT240 M1 PO (04:01)
[2017-04-24] MEDS ORDERED: CENTRUM SILVER1 EAC3 PO (04:01)
[2017-04-24] MEDS ORDERED: GENERLAC10 GM/15 M PO (04:01)
[2017-04-24] MEDS ORDERED: REQUIP1 M1 PO (04:02)
[2017-04-24] MEDS ORDERED: VITAMIN C1000 M1 PO (04:03)
[2017-04-24] MEDS ORDERED: ROPINIROLE HCL4 M2 PO (04:03)
[2017-04-24] MEDS ORDERED: ZOCOR10 M1 PO (15:05)
[2017-05-07] MEDS ORDERED: COUMADIN5 M2 PO ×2 (11:32→11:44)
[2017-05-08] MEDS ORDERED: LASIX40 M1 PO (10:57)
== END 2017-02-07 15:00 | DRG 641 ==
LOC: EDMED 14:04 → EMR2 20:00 → CCU 20:08 → PCUA 02-06 13:35
PROVIDERS: Emergency Medicine; Registered Nurse; ADMIT Family Medicine
PROC: 3E0234Z Introduction of Serum, Toxoid and Vaccine into Muscle, Percutaneous Approach (ICD-10-PCS; principal; 2017-02-05)
PROC: 02HV33Z Insertion of Infusion Device into Superior Vena Cava, Percutaneous Approach (ICD-10-PCS; 2017-02-05)
DX: E86.0 Dehydration (principal); N17.9 Acute kidney failure, unspecified; C22.9 Malignant neoplasm of liver, not specified as primary or secondary; E87.2 Acidosis; I48.92 Unspecified atrial flutter; K74.60 Unspecified cirrhosis of liver; I10 Essential (primary) hypertension; D63.8 Anemia in other chronic diseases classified elsewhere; R53.1 Weakness; I48.91 Unspecified atrial fibrillation; E83.42 Hypomagnesemia; R29.6 Repeated falls; R26.81 Unsteadiness on feet; E87.5 Hyperkalemia; K76.0 Fatty (change of) liver, not elsewhere classified; G47.33 Obstructive sleep apnea (adult) (pediatric); E11.9 Type 2 diabetes mellitus without complications; S50.811A Abrasion of right forearm, initial encounter; W18.30XA Fall on same level, unspecified, initial encounter; Y93.K9 Activity, other involving animal care; Y92.007 Garden or yard of unspecified non-institutional (private) residence as the place of occurrence of the external cause; Z23 Encounter for immunization; Z87.891 Personal history of nicotine dependence; Z91.81 History of falling; Z86.73 Personal history of transient ischemic attack (TIA), and cerebral infarction without residual deficits; Z79.01 Long term (current) use of anticoagulants; Z79.899 Other long term (current) drug therapy; Z79.84 Long term (current) use of oral hypoglycemic drugs
CPT/HCPCS: C1751; C8929; J1815; J2543; J3370; J7030; J7040; J7050